=== PATIENT | female | born 1965 | race Asian ===

== ENCOUNTER 2020-03-09 19:34 | Emergency (ER) | payer BC ==
[~2020-03-09] VITALS: Ht 167.6 cm; Wt 86.4 kg
[2020-03-09] MEDS ORDERED: CARV3 PO (19:59)
[2020-03-09] MEDS ORDERED: ATOR10TA84 PO (19:59)
[2020-03-09] MEDS ORDERED: FURO40 PO (19:59)
[2020-03-09] MEDS ORDERED: ALLO-44 PO (19:59)
[2020-03-09] MEDS ORDERED: METF-960 PO (19:59)
[2020-03-09] MEDS ORDERED: LOSA100T58 PO (20:06)
[2020-03-09] MEDS ORDERED: CARV12 PO (20:06)
[2020-03-09] MEDS ORDERED: GLIP5TAB11 PO (20:06)
[2020-03-09] MEDS ORDERED: ATOR20TA86 PO (20:06)
[2020-03-09] MEDS ORDERED: LIDOCAINE 2% VISCOUS 15 ML SOLUTION UDCUP PO ONE (22:15)
[2020-03-09] MEDS ORDERED: OXYMETAZOLINE HCL 0.05% 15 ML NASAL SPRAY NASAL ONE (22:15)
[2020-03-09 22:18] LABS: BASOPHILS % (AUTO) 0.5 % (0.0-2.0); EOSINOPHILS % (AUTO) 3.1 % (1.0-6.0); HEMATOCRIT 46.1 % (36-46); HEMOGLOBIN 15.6 g/dL (12.0-16.0); LYMPHOCYTES # (AUTO) 2.1 K/uL (1.0-4.8); LYMPHOCYTES % (AUTO) 21.3 % (22.0-44.0); MEAN CORPUSCULAR HEMOGLOBIN 30.4 pg (26.0-34.0); MEAN CORPUSCULAR HGB CONC 33.9 G/dL (31.0-37.0); MEAN CORPUSCULAR VOLUME 90 fL (80-100); MONOCYTES # (AUTO) 0.7 K/uL (0.1-1.0); MONOCYTES % (AUTO) 6.7 % (2.0-9.0); NEUTROPHILS # (AUTO) 6.7 K/uL (1.8-7.7); NEUTROPHILS % (AUTO) 68.4 % (40.0-70.0); PLATELET COUNT (AUTO) 253 K/uL (150-450); RED BLOOD CELL COUNT(AUTO) 5.14 MIL/uL (4.00-5.20); RED CELL DISTRIBUTION WIDTH 12.6 % (11.5-14.5)
[2020-03-09 22:28] LABS: PROTHROMBIN TIME 10.1 SEC (9.4-11.6)
[2020-03-09] MEDS ORDERED: SILVER NITRATE APPLICATOR 1 EA STICK TP ONE (22:47)
[2020-03-09 23:53] VITALS: BP 150/88
== END 2020-03-09 23:54 | disposition home or self-care (01) ==
LOC: EMS 19:36
DX: S09.8XXA Other specified injuries of head, initial encounter (principal); R04.0 Epistaxis; I10 Essential (primary) hypertension; E11.9 Type 2 diabetes mellitus without complications; Z88.1 Allergy status to other antibiotic agents; Z79.899 Other long term (current) drug therapy; W22.8XXA Striking against or struck by other objects, initial encounter; Y93.89 Activity, other specified; Y92.89 Other specified places as the place of occurrence of the external cause; Y99.8 Other external cause status
CPT/HCPCS: 93005